=== PATIENT | female | born 1985 | race Hispanic/Latino ===

== ENCOUNTER 2019-11-07 10:30 | Emergency (ER) | payer OTHER ==
[~2019-11-07] VITALS: Ht 160 cm; Wt 86.2 kg
== END 2019-11-07 13:16 | disposition home or self-care (01) ==
LOC: ED 10:30
DX: N93.9 Abnormal uterine and vaginal bleeding, unspecified (principal)
CPT/HCPCS: 36415; 76801; 76817; 84702; 99284-25

== ENCOUNTER 2020-07-18 15:31 | Emergency (ER) | payer OTHER ==
[~2020-07-18] VITALS: Ht 167.6 cm; Wt 84.4 kg
[~2020-07-18 15:31] MED LIST: BIOTIN10000 MC1 PO; CALCIUM 600 +1 EAC2 PO; IRON325 M1 PO; MULTIVITAMINS1 EAC8 PO; PRENATAL + DHA1 EAC1 PO; VITAMIN D21250 MCG PO; WELLBUTRIN XL150 MG PO
[2020-07-18] MEDS ORDERED: PREDNISONE20 MG PO (17:55)
== END 2020-07-18 18:08 | disposition home or self-care (01) ==
LOC: ED 15:31
DX: M54.6 Pain in thoracic spine (principal); M54.5 Low back pain; F32.9 Major depressive disorder, single episode, unspecified; F41.9 Anxiety disorder, unspecified; Z91.040 Latex allergy status; Z79.899 Other long term (current) drug therapy
CPT/HCPCS: 81001; 84703; 99283

== ENCOUNTER 2021-04-27 07:53 | Emergency (ER) | payer OTHER ==
[~2021-04-27] VITALS: Ht 160 cm; Wt 96.6 kg
[~2021-04-27 07:53] MED LIST changes: +PREDNISONE20 MG PO
[2021-04-27] MEDS ORDERED: PRENATAL FORMU1 EAC2 PO (08:07)
[2021-04-27] MEDS ORDERED: IRON18 MG PO (08:07)
[2021-04-27] MEDS ORDERED: POTASSIUM CHLOR8 MEQ PO (08:07)
== END 2021-04-27 08:38 | disposition home or self-care (01) ==
LOC: ED 07:53
DX: O9A.213 Injury, poisoning and certain other consequences of external causes complicating pregnancy, third trimester (principal); S61.210A Laceration without foreign body of right index finger without damage to nail, initial encounter; Z88.1 Allergy status to other antibiotic agents; Z91.040 Latex allergy status; Z79.899 Other long term (current) drug therapy; W26.0XXA Contact with knife, initial encounter; Z3A.37 37 weeks gestation of pregnancy
CPT/HCPCS: 12001; 99282-25

== ENCOUNTER 2021-05-12 07:35 | Inpatient (IN) | payer OTHER ==
[~2021-05-12 07:35] MED LIST changes: +IRON18 MG PO; +POTASSIUM CHLOR8 MEQ PO; +PRENATAL FORMU1 EAC2 PO
--- NOTE | 2021-05-12 08:25 | NUR ---
RT COLLECTED RAPID COVID 19 SWAB USING IN HOUSE LAB WITH NO COMPLICATIONS AT THIS TIME.
--- NOTE | 2021-05-12 11:00 | PR ---
[facility] [address] [facility] [place], [place] [address] Signed Progress Notes IP Datetime Report Generated by CPN: 05/12/2021 11:00 PROGRESS NOTES: [id number] Impression: Normal Progression of Labor Procedures: Artificial ROM; Sterile Vag Exam Plan: Continue Present Management Informed Consent Obtain: Vaginal Delivery VITAL SIGNS: [id number] Vital Signs: Reviewed; Within Normal Limits EXAM: [id number] Dilatation: 9.5 Effacement: 100 Station: -1 Contractions: q 3-4 min per pt MEMBRANES: [id number] Comments: Pt seen and examined. Doing well. Comfortable w/ epidural. 9.5cm w/ easily reducible cervix. AROM performed for scant amniotic fluid. Anticipate soon. FETUS A: [id number] FHR Baseline: 140 Variability: Moderate 6-25bpm Accelerations: 15X15 Decelerations: None FHR Category: Category I Comments on Fetus A: No evidence of metabolic acidosis FETUS B: [id number] Signing Physician: Ponce Garcia DO Copies: ~ *Electronically Signed* 05/12/21 1100 PONCE GARCIA DO PATIENT NAME: JOHNY GERARDO PROGRESS NOTE DATE OF : 89 PHYSICIAN: PONCE GARCIA DO RPT #: [id number] REPORT IS CONFIDENTIAL AND NOT TO BE RELEASED WITHOUT AUTHORIZATION
--- NOTE | 2021-05-12 11:01 | PR ---
[facility] [address] [facility] [place], [place] [address] Signed Progress Notes IP Datetime Report Generated by CPN: 05/12/2021 11:01 PROGRESS NOTES: [id number] Impression: Normal Progression of Labor Procedures: Artificial ROM; Sterile Vag Exam Plan: Continue Present Management Informed Consent Obtain: Vaginal Delivery VITAL SIGNS: [id number] Vital Signs: Reviewed; Within Normal Limits EXAM: [id number] Dilatation: 9.5 Effacement: 100 Station: -1 Contractions: q 3-4 min per pt MEMBRANES: [id number] Comments: Pt seen and examined. Doing well. Comfortable w/ epidural. 9.5cm w/ easily reducible cervix. AROM performed for scant amniotic fluid. Anticipate soon. FETUS A: [id number] FHR Baseline: 140 Variability: Moderate 6-25bpm Accelerations: 15X15 Decelerations: None FHR Category: Category I Comments on Fetus A: No evidence of metabolic acidosis FETUS B: [id number] Signing Physician: Ponce Garcia DO Copies: ~ *Electronically Signed* 05/12/21 1101 PONCE GARCIA DO PATIENT NAME: JOHNY GERARDO PROGRESS NOTE DATE OF : 89 PHYSICIAN: PONCE GARCIA DO RPT #: [id number] REPORT IS CONFIDENTIAL AND NOT TO BE RELEASED WITHOUT AUTHORIZATION
--- NOTE | 2021-05-12 12:30 | PR ---
[facility] [address] [facility] [place], [place] [address] Signed Progress Notes IP Datetime Report Generated by CPN: 05/12/2021 12:30 PROGRESS NOTES: [id number] Impression: Normal Progression of Labor Procedures: Sterile Vag Exam Plan: Continue Present Management; Anticipate Vaginal Delivery Informed Consent Obtain: Vaginal Delivery VITAL SIGNS: [id number] Vital Signs: Reviewed; Within Normal Limits EXAM: [id number] Dilatation: 10.0 Effacement: 100 Station: 0 Contractions: q 3-4 min per pt MEMBRANES: [id number] Comments: Physician at bedside pushing w/ pt. Last glucose 90. Excellent pushing efforts and descent noted w/ each ctx. Anticipate soon. FETUS A: [id number] FHR Baseline: 140 Variability: Moderate 6-25bpm Accelerations: 15X15 Decelerations: None FHR Category: Category I Comments on Fetus A: No evidence of metabolic acidosis FETUS B: [id number] Signing Physician: Ponce Garcia DO Copies: ~ *Electronically Signed* 05/12/21 1230 PONCE GARCIA DO PATIENT NAME: JOHNY GERARDO PROGRESS NOTE DATE OF : 89 PHYSICIAN: PONCE GARCIA DO [facility] #: [id number] REPORT IS CONFIDENTIAL AND NOT TO BE RELEASED WITHOUT AUTHORIZATION
--- NOTE | 2021-05-13 12:37 | PR ---
[facility] [address] [facility] [place], [place] [address] Signed PP Progress Notes Datetime Report Generated by CPN: 05/13/2021 12:37 SUBJECTIVE: [id number] Pain: Within Normal Limits Nausea/Vomiting: Denies Flatus: Yes Vital Signs: [id number] Vital Signs: Reviewed; Within Normal Limits Cardiovascular: Normal Respiratory: Normal Abdomen/Uterus: Normal CVA Tenderness: Normal Extremities: Normal Incision: Not Applicable Progress: Normal Exam Comments: Fundus firm U-2 nontender IMPRESSION/PLAN/PROCEDURES: [id number] Impression: Normal Progression Plan: Discharge Progress Notes: Pt seen and examined. Doing well. Ambulating, voiding, and tolerating full diet. Pain and lochia minimal. well. No concerns. Desires d/c home today. Reviewd NSAID intolerance due to gastric bypass and will primarily use ice and tylenol for pain control, although Gilbert 5/325 #5 also rx'd. F/U w/ Dr Vargas for pp care Signing Physician: Ponce Garcia DO Copies: ~ *Electronically Signed* 05/13/21 1237 PONCE GARCIA DO PATIENT NAME: JOHNY GERARDO PROGRESS NOTE DATE OF : 89 PHYSICIAN: PONCE GARCIA DO RPT #: [id number] REPORT IS CONFIDENTIAL AND NOT TO BE RELEASED WITHOUT AUTHORIZATION
== END 2021-05-13 17:10 | disposition home or self-care (01) | DRG 807 ==
LOC: FBCO 07:35 → FBC 07:50 → FBCO 05-13 06:41 → FBC 05-13 17:10
PROVIDERS: ADMIT Obstetrics & Gynecology; ATTEND Obstetrics & Gynecology
PROC: 10E0XZZ Delivery of Products of Conception, External Approach (ICD-10-PCS; principal; 2021-05-12)
PROC: 10907ZC Drainage of Amniotic Fluid, Therapeutic from Products of Conception, Via Natural or Artificial Opening (ICD-10-PCS; 2021-05-12)
PROC: 0HQ9XZZ Repair Perineum Skin, External Approach (ICD-10-PCS; 2021-05-12)
PROC: 3E0R3BZ Introduction of Anesthetic Agent into Spinal Canal, Percutaneous Approach (ICD-10-PCS; 2021-05-12)
PROC: 00HU33Z Insertion of Infusion Device into Spinal Canal, Percutaneous Approach (ICD-10-PCS; 2021-05-12)
DX: O24.420 Gestational diabetes mellitus in childbirth, diet controlled (principal); Z37.0 Single live birth; O70.0 First degree perineal laceration during delivery; Z3A.39 39 weeks gestation of pregnancy; Z91.040 Latex allergy status; O99.214 Obesity complicating childbirth; E66.9 Obesity, unspecified; Z98.84 Bariatric surgery status
CPT/HCPCS: 01960; 85027; C9803; J2001; J2405; J2590; J2795; J7121; U0003

== ENCOUNTER 2022-09-08 09:26 | Emergency (ER) | payer OTHER ==
[~2022-09-08] VITALS: Ht 160 cm; Wt 96.2 kg
--- OUTSIDE RECORDS SUMMARY | 2022-09-08 09:28 | XMS ---
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 EAnna VISIT COUNT (12 MO.) 1 PATI [place] TOTAL 1 NOTE: Visits indicate total known visits. ED/UCC VISIT TRACKING (12 MO.) 09/08/2022 09:27 PATI [facility] [place] TYPE: Emergency COMPLAINT: - BACK PAIN/INJURY INPATIENT VISIT TRACKING (12 MO.) No inpatient visits to display in this time frame [email or web address]
[2022-09-08] MEDS ORDERED: CLONAZEPAM1 MG PO (09:40)
[2022-09-08] MEDS ORDERED: PREDNISONE20 MG PO (10:03)
== END 2022-09-08 10:20 | disposition home or self-care (01) ==
LOC: ED 09:26
DX: S39.012A Strain of muscle, fascia and tendon of lower back, initial encounter (principal); F32.9 Major depressive disorder, single episode, unspecified; F41.9 Anxiety disorder, unspecified; Z88.1 Allergy status to other antibiotic agents; Z91.040 Latex allergy status; Z79.899 Other long term (current) drug therapy; X58.XXXA Exposure to other specified factors, initial encounter
CPT/HCPCS: 99283

== ENCOUNTER 2024-04-24 19:27 | Emergency (ER) | payer OTHER ==
[~2024-04-24] VITALS: Ht 160 cm; Wt 80.5 kg
[~2024-04-24 19:27] MED LIST changes: +CLONAZEPAM1 MG PO
--- OUTSIDE RECORDS SUMMARY | 2024-04-24 19:29 | XMS ---
PreManage Notification: JOHNY GERARDO Security Engineering Secretary Events No recent Security Events currently on file CRITERIA MET - PDM CARE PROVIDERS -, [facility] Dentist: Client Development Consultant [facility] PHONE: [phone] -[place] Dentist: Client Development Consultant Current [facility] PHONE: [phone] Yusuf has no Care Guidelines for this patient. Ankush VISIT COUNT (12 MO.) 2 PATI [place] TOTAL 2 NOTE: Visits indicate total known visits. ED/UCC VISIT TRACKING (12 MO.) 04/24/2024 19:28 [facility] [place] TYPE: Emergency COMPLAINT: - LT ANKLE PAIN 11/03/2023 17:17 [facility] [place] TYPE: Emergency COMPLAINT: - RT ANKLE INJURY DIAGNOSES: - Allergy status to other antibiotic agents - Latex allergy status - Other intermediate manager (current) drug therapy - Overexertion from prolonged static or awkward postures, initial encounter - Pain in right ankle and joints of right foot - Sprain of unspecified ligament of right ankle, initial encounter INPATIENT VISIT TRACKING (12 MO.) No inpatient visits to display in this time frame [email or web address]
[2024-04-24] MEDS ORDERED: NORGESTIMATE-E1 EACH PO (20:29)
[2024-04-24] MEDS ORDERED: TRAMADOL HCL 50 MG TAB PO ONE (20:45)
[2024-04-24] MEDS ORDERED: TRAMADOL HCL50 MG PO (22:19)
[2024-04-24] MEDS ORDERED: TRAMADOL HCL 50 MG HOME.PACK PO ONE (22:30)
[2024-04-24 22:40] VITALS: BP 114/77
== END 2024-04-24 22:39 | disposition home or self-care (01) ==
LOC: ED 19:27
DX: S90.32XA Contusion of left foot, initial encounter (principal); S90.02XA Contusion of left ankle, initial encounter; S80.12XA Contusion of left lower leg, initial encounter; S93.402A Sprain of unspecified ligament of left ankle, initial encounter; W18.30XA Fall on same level, unspecified, initial encounter; Z88.8 Allergy status to other drugs, medicaments and biological substances; Z91.040 Latex allergy status; Z79.899 Other long term (current) drug therapy
CPT/HCPCS: 73610; 73700; 99284-25; A9270

== ENCOUNTER 2024-07-15 17:41 | Observation (INO) | payer OTHER ==
[~2024-07-15] VITALS: Ht 160 cm; Wt 82.5 kg
[~2024-07-15 17:41] MED LIST changes: +NORGESTIMATE-E1 EACH PO; +TRAMADOL HCL50 MG PO
[2024-07-15 20:20] LABS: BASOPHILS 0.2 % (0-2); EOSINOPHILS 0.9 % (0-6); HEMATOCRIT 34.7 % (35.0-50.0); HEMOGLOBIN 11.9 g/dL (12.0-18.0); LYMPHOCYTES 17.2 % (24-44); MCH 31.3 (27-36); MCHC 34.4 g/dl (30-36); MCV 90.9 fl (81-99); MONOCYTES 7.2 % (0-12); NEUTROPHILS 74.5 % (39-80); PLATELET COUNT 253 K/uL (140-440); RBC 3.82 M/ul (4.3-5.7); RDW 15.2 (10.5-15.0)
[2024-07-15 20:35] LABS: ALBUMIN 3.4 g/dL (3.4-5.0); ALBUMIN/GLOBULIN RATIO 0.76 (1.1-2.4); BILIRUBIN, TOTAL 0.3 ng/dL (0.2-1.0); BUN/CREATININE RATIO 12.28 (6.0-28.6); CALCIUM 8.9 mg/dL (8.5-10.1); CREATININE, SERUM 0.57 mg/dL (0.55-1.02); PROTEIN, TOTAL 7.9 g/dL (6.4-8.2)
[2024-07-15] MEDS ORDERED: KETOROLAC TROMETHAMINE 30 MG/ML VIAL IV ONE (21:15)
[2024-07-15] MEDS ORDERED: TRIMETHOPRIM/SULFAMETHOXAZOLE 1 EA TAB PO ONE (21:30)
[2024-07-15] MEDS ORDERED: CEFAZOLIN SODIUM 2 GM/20 ML SYR IV ONE (21:45)
[2024-07-15] MEDS ORDERED: metroNIDAZOLE/SODIUM CHLORIDE 500 MG/100 ML PIGGYBACK IV ONE (21:45)
[2024-07-15 22:14] LABS: LACTIC ACID, BLOOD 0.6 mmol/L (0.4-2.0)
[2024-07-15] MEDS ORDERED: LACTATED RINGER'S 1,000 ML IV SCH ×2 (22:15→22:30)
[2024-07-15] MEDS ORDERED: BUPIVACAINE 0.75% IN DEXTROSE 2 ML AMP ONE (22:32)
[2024-07-15] MEDS ORDERED: MIDAZOLAM HCL 2 MG/2 ML VIAL ONE (22:32)
[2024-07-15] MEDS ORDERED: FAMOTIDINE 20 MG/ 2 ML VIAL IV SCH (22:32)
[2024-07-15] MEDS ORDERED: fentaNYL citrate 100 MCG/2 ML VIAL ONE (22:32)
[2024-07-15] MEDS ORDERED: LIDOCAINE HCL 2% 5 ML SDV ONE (22:32)
[2024-07-15] MEDS ORDERED: ondansetron HCL 4 MG/2 ML VIAL ONE (22:32)
[2024-07-15] MEDS ORDERED: propofoL 200 MG/20 ML VIAL ONE ×2 (23:10)
[2024-07-15 23:19] LABS: BILIRUBIN, URINE NEGATIVE (negative); BLOOD/HGB, URINE NEGATIVE (Negative); KETONE, URINE NEGATIVE (Negative); LEUK ESTERASE, URINE NEGATIVE (negative); NITRITE, URINE NEGATIVE (negative); PH, URINE 7.5 (5-7)
[2024-07-15 23:33] LABS: AMPHETAMINES, URINE NEGATIVE (NEGATIVE); BARBITURATES, URINE NEGATIVE (NEGATIVE); BENZODIAZEPINE, URINE NEGATIVE (NEGATIVE); BUPRENORPHINE, URINE NEGATIVE (NEGATIVE); CANNABINOID, URINE POSITIVE (NEGATIVE); COCAINE, URINE NEGATIVE (NEGATIVE); ECSTASY, URINE NEGATIVE (NEGATIVE); FENTANYL, URINE NEGATIVE (NEGATIVE); METHADONE, URINE NEGATIVE (NEGATIVE); OPIATES, URINE NEGATIVE (NEGATIVE); OXYCODONE, URINE NEGATIVE (NEGATIVE); PHENCYCLIDINE, URINE NEGATIVE (NEGATIVE)
[2024-07-15] MEDS ORDERED: HYDROmorphone HCL 1 MG/ML SYR IV PRN (23:45)
[2024-07-15] MEDS ORDERED: NALOXONE HCL 0.4 MG SYR IV PRN (23:45)
[2024-07-15] MEDS ORDERED: KETOROLAC TROMETHAMINE 30 MG/ML VIAL IV PRN (23:45)
[2024-07-15] MEDS ORDERED: ondansetron HCL 4 MG/2 ML VIAL IV PRN (23:45)
[2024-07-15] MEDS ORDERED: PROCHLORPERAZINE EDISYLATE 10 MG/2 ML VIAL IV PRN (23:45)
[2024-07-15] MEDS ORDERED: diphenhydrAMINE HCL 50 MG/ML VIAL IV PRN (23:45)
[2024-07-16] VITALS (8 sets, daily range): BP systolic 92–108; BP diastolic 54–79
[2024-07-16] MEDS ORDERED: KETOROLAC TROMETHAMINE 30 MG/ML VIAL IV PRN (02:15)
[2024-07-16] MEDS ORDERED: ACETAMINOPHEN 500 MG TAB PO PRN (02:15)
[2024-07-16] MEDS ORDERED: MORPHINE SULFATE 10 MG/ML VIAL IV PRN (02:15)
[2024-07-16] MEDS ORDERED: IBUPROFEN 600 MG TAB PO PRN (02:15)
[2024-07-16] MEDS ORDERED: OXYCODONE/APAP 7.5/325 TAB PO PRN (02:15)
[2024-07-16] MEDS ORDERED: CEFAZOLIN SODIUM 2 GM/20 ML SYR IV SCH ×2 (04:00→06:00)
[2024-07-16] MEDS ORDERED: metroNIDAZOLE/SODIUM CHLORIDE 500 MG/100 ML PIGGYBACK IV SCH ×2 (04:00→06:00)
[2024-07-16] MEDS ORDERED: IBUPROFEN600 MG PO (09:19)
[2024-07-16] MEDS ORDERED: OXYCODON-ACETA1 EAC2 PO (09:19)
[2024-07-16] MEDS ORDERED: ACETAMINOPHEN500 MG PO (09:19)
[2024-07-16] MEDS ORDERED: AMOXICILLIN/CLAVULANATE K 500 MG TAB PO SCH (09:25)
[2024-07-16] MEDS ORDERED: AUGMENTIN 500-1 EACH PO (09:26)
--- NOTE | 2024-07-19 11:13 | OR ---
[facility] [address] [place], [place] [address] Signed DATE OF OPERATION: 07/15/2024 SURGEON: Neetu Lopez MD PREOPERATIVE DIAGNOSIS: Right gluteal abscess x2. POSTOPERATIVE DIAGNOSIS: Right gluteal abscess x2. PROCEDURES: 1. Exam under anesthesia. 2. Incision drainage and debridement including soft tissue (subcutaneous fat) and skin of gluteal abscess x2. 3. Placement of yellow vessel loop drain. ANESTHESIA: Saddle block with IV sedation, Roberto Keene CRNA. INDICATION: This 38-year-old woman who has had four days of increasing pain in the right gluteal area in the superomedial and superolateral aspect. She presented to the emergency room having had some evidence of spontaneous necessitation of purulent material. She was evaluated by Dr. Raines, noted to have exquisite tenderness in two separate areas in the right superior gluteal area. This did not appear to be consistent with a perirectal abscess proper. She has never had skin infection or other similar problem in the past. A CT scan was performed, which showed inflammation and edema, but no drainable fluid collection. Nevertheless, clinical examination confirms two obvious abscesses in the right superior medial and lateral gluteal areas for which incision and drainage and debridement is appropriate. The risk of bleeding, infection, cosmetic deformity, need for additional treatment and so forth were reviewed with the patient. She understands and wished to proceed. FINDINGS: Indeed both areas were abscess cavities. Some of the purulence had drained of course, but there was necrotic fat in both of them. Elliptical excision of the skin and subcutaneous tissue in both areas was undertaken as well as debridement of necrotic fat. As it turns out the both areas were in continuity with each other in the subcutaneous space and a single yellow vessel loop was used to connect both areas to allow for ongoing drainage. Electronically Signed By: NEETU LOPEZ MD 07/19/24 1113 PATIENT NAME: JOHNY GERARDO OPERATIVE REPORT DATE OF : 89 REPORT #: [id number] PHYSICIAN: NEETU LOPEZ MD PCP: MITALI YEPEZ MD REPORT IS CONFIDENTIAL AND NOT TO BE RELEASED WITHOUT AUTHORIZATION [facility] [address] [place], [place] [address] Signed DESCRIPTION OF PROCEDURE: The patient was brought to the operating room after undergoing saddle block anesthetic and placed in the prone eugenia-knife position. The buttocks were prepared with chlorhexidine solution and draped sterilely. Incision with a 15 blade in the medial superior necessitating site was undertaken excising skin and subcutaneous tissue. Egress of purulent material was noted. Loculations were broken down with a tonsil clamp. Gram stain and cultures were obtained. Further probing showed the lesion to be in continuity with the superolateral lesion. This area was similarly excised and debrided and the two areas made in continuity with a tonsil clamp. A yellow vessel loop was passed between the two areas. Thereafter, debridement with suction and irrigation with sterile saline was undertaken until viable tissue was noted. Both sites were packed with a quarter-inch Nu Gauze for hemostatic benefit. Loop was tied and an ABD pad applied. The patient was returned to the supine position, ultimately taken to recovery room in good condition having suffered no complication. Blood loss was about 10 mL. Sponge, needle, and instrument counts reported as correct x3. Neetu Lopez MD JM/MODL /[id number] cc: Dr. Yanna Yepez Copies: ~ Electronically Signed By: NEETU LOPEZ MD 07/19/24 1113 PATIENT NAME: JOHNY GERARDO OPERATIVE REPORT DATE OF : 89 REPORT #: [id number] PHYSICIAN: NEETU LOPEZ MD PCP: MITALI YEPEZ MD REPORT IS CONFIDENTIAL AND NOT TO BE RELEASED WITHOUT AUTHORIZATION
--- NOTE | 2024-07-19 11:13 | HP ---
[facility] [address] [place], [place] [address] Signed ADMISSION DATE: 07/15/2024 REASON FOR ADMISSION: Large buttock abscess x2. 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 In the past several days, she has had increasing pain in two separate areas of the buttocks. This does not represent anal pain per se. She thought she had "spider bites." She has had progressive worsening of her symptoms, pain and swelling and intense tenderness upon manipulation. She was evaluated by Dr. Raines in the emergency room where she was found to have spontaneous necessitation of some purulent material. A CT scan was performed, which showed a "dominant focal cellulitis" superficial in the right upper gluteal cleft and additional small focus of cellulitis in the superolateral right paramedian lower back gluteal cleft. There was considered to be no organized fluid collection. Mindful of the notorious inaccuracy of such studies in this region, clinical examination was deemed appropriate and consultation undertaken at basis. PAST MEDICAL HISTORY: Rather unremarkable. LABORATORY DATA: Her lab studies in evaluation included a beta HCG, which is negative. A Chem profile is entirely normal. REVIEW OF SYSTEMS: She denies any fever, chills. She has intense pain in the gluteal areas as described. PHYSICAL EXAMINATION: GENERAL: Pleasant, woman who was alert and oriented, not systemically toxic. HEENT: Trachea is midline. LUNGS: She has no respiratory distress. HEART: Regular. PELVIS: In the lateral decubitus position with the nurse in attendance as well as Dr. Raines, examination of the gluteal area was undertaken. Two areas of intense inflammation and a large abscess cavities are noted with some spontaneous necessitation. This does not appear to be a perianal problem but rather gluteal abscess problem. Electronically Signed By: NEETU LOPEZ MD 07/19/24 1113 PATIENT NAME: JOHNY GERARDO HISTORY AND PHYSICAL DATE OF : 89 REPORT #: [id number] PHYSICIAN: NEETU LOPEZ MD PCP: MITALI YEPEZ MD REPORT IS CONFIDENTIAL AND NOT TO BE RELEASED WITHOUT AUTHORIZATION [facility] [address] [place], [place] [address] Signed ASSESSMENT AND PLAN: The patient has gluteal abscesses x2, which have started with spontaneous necessitation. Antibiotics have been initiated including Ancef and Flagyl. She needs exam under anesthesia and incision, drainage and debridement of the abscess cavities. Likely, she will need a vessel loop type drainage apparatus on each site. The risk of bleeding, infection, cosmetic deformity, possibility of recurrent or more advanced disease and expected were all reviewed with her. She understands and wished to proceed. We will plan to do this tonight despite the late hour given the acuity of her problem. MD JORY Jones/CHERRI /[id number] cc: Dr. Yanna Yepez Copies: ~ Electronically Signed By: NEETU LOPEZ MD 07/19/24 1113 PATIENT NAME: JOHNY GERARDO HISTORY AND PHYSICAL DATE OF : 89 REPORT #: [id number] PHYSICIAN: NEETU LOPEZ MD PCP: MITALI YEPEZ MD REPORT IS CONFIDENTIAL AND NOT TO BE RELEASED WITHOUT AUTHORIZATION
--- NOTE | 2024-07-21 18:19 | PATH ---
[facility] [address] [place], [place] [address] Signed SPECIMEN(S): A GLUTEAL ABSCESSES SPECIMEN SOURCE: A. GLUTEAL ABSCESSES CLINICAL HISTORY: Gluteal abscesses x 2 FINAL PATHOLOGIC DIAGNOSIS: Gluteal abscesses: - Inflamed and ulcerated skin with prominent acute subepithelial inflammation and abscess. JVR:slc MICROSCOPIC EXAMINATION: Histologic sections of all submitted blocks are examined by light microscopy. These findings, together with the gross examination, support the pathologic diagnosis. GROSS DESCRIPTION: The specimen, labeled and designated "Jayant Tabares, products of debridement," is received in formalin and consists of single fragment of pereyra-contreras soft tissue with overlying contreras skin measuring 1.3 x 1.2 x 0.9 cm. The specimen trisected to reveal yellow-contreras discolored soft tissue seen throughout. The specimen entirely submitted in a single cassette. JM (under the direct supervision of a pathologist) The Gross Description was prepared using a voice recognition system. The report was reviewed for accuracy; however, sound-alike word errors, addition and/or deletions may occur. If there is any question about this report, please contact Client Services. PERFORMING LABORATORY: Technical component was performed by [email or web address], [address] [place] [id number] (CLIA# [id number]). Professional interpretation was performed by [facility] - [facility], [address] [place] [id number] (CLIA#: [id number]). Diagnostician: Arden Duran MD Pathologist Electronically Signed 07/21/2024 PATIENT NAME: JOHNY TABARES PATHOLOGY DATE OF : 89 REPORT #: [id number] PHYSICIAN: JANET FRANKEL PCP: MITALI YEPEZ MD REPORT IS CONFIDENTIAL AND NOT TO BE RELEASED WITHOUT AUTHORIZATION [address] [place], [place] [address] Signed Copies: ~ PATIENT NAME: JOHNY TABARES PATHOLOGY DATE OF : [birth year] REPORT #: [id number] PHYSICIAN: JANET PATHOLOGY PCP: MITALI YEPEZ MD REPORT IS CONFIDENTIAL AND NOT TO BE RELEASED WITHOUT AUTHORIZATION
== END 2024-07-16 11:52 | disposition home or self-care (01) ==
LOC: ED 17:41 → CCU 17:42
PROVIDERS: Internal Medicine; ADMIT Surgery; ATTEND Surgery
PROC: 0J9900Z Drainage of Buttock Subcutaneous Tissue and Fascia with Drainage Device, Open Approach (ICD-10-PCS; principal; 2024-07-16)
DX: L02.31 Cutaneous abscess of buttock (principal); L98.412 Non-pressure chronic ulcer of buttock with fat layer exposed
CPT/HCPCS: 00400; 36415; 74177; 80053; 80307; 81003; 83605; 84703; 85025; 87040; 87070; 87075; 87186; 87205; 96375; 99284-25; J0690; J1885; J2250; J2405; J2704; J3010; J7121; Q9967

== ENCOUNTER 2024-10-01 17:35 | Emergency (ER) | payer OTHER ==
[~2024-10-01] VITALS: Ht 160 cm; Wt 79.4 kg
[~2024-10-01 17:35] MED LIST changes: +ACETAMINOPHEN500 MG PO; +AUGMENTIN 500-1 EACH PO; +IBUPROFEN600 MG PO; +OXYCODON-ACETA1 EAC2 PO
[2024-10-01] MEDS ORDERED: OXYCODONE/APAP 5/325 TAB PO ONE (20:00)
[2024-10-01] MEDS ORDERED: HIBICLENS118 ML TOP (20:57)
[2024-10-01] MEDS ORDERED: DOXYCYCLINE HYCLATE 100 MG HOME.PACK PO ONE (21:00)
[2024-10-01 21:15] VITALS: BP 117/74
== END 2024-10-01 21:16 | disposition home or self-care (01) ==
LOC: ED 17:35
DX: L02.415 Cutaneous abscess of right lower limb (principal); Z91.040 Latex allergy status; Z88.1 Allergy status to other antibiotic agents; Z79.899 Other long term (current) drug therapy
CPT/HCPCS: 99282; A9270

== ENCOUNTER 2024-11-22 18:59 | Emergency (ER) | payer OTHER ==
[~2024-11-22] VITALS: Ht 160 cm; Wt 74.2 kg
[~2024-11-22 18:59] MED LIST changes: +HIBICLENS118 ML TOP
[2024-11-22] MEDS ORDERED: KETOROLAC TROMETHAMINE 30 MG/ML VIAL IV ONE (19:30)
[2024-11-22 19:54] LABS: BASOPHILS 0.3 % (0-2); EOSINOPHILS 0.3 % (0-6); HEMATOCRIT 34.1 % (35.0-50.0); HEMOGLOBIN 11.7 g/dL (12.0-18.0); LYMPHOCYTES 12.4 % (24-44); MCH 29.5 (27-36); MCHC 34.2 g/dl (30-36); MCV 86.2 fl (81-99); MONOCYTES 6.7 % (0-12); NEUTROPHILS 80.3 % (39-80); PLATELET COUNT 277 K/uL (140-440); RBC 3.95 M/ul (4.3-5.7); RDW 16.9 (10.5-15.0)
[2024-11-22 20:22] LABS: ALBUMIN 3.9 g/dL (3.4-5.0); ALBUMIN/GLOBULIN RATIO 1.08 (1.1-2.4); ANION GAP 13.4 (7-21); BILIRUBIN, TOTAL 0.3 mg/dL (0.2-1.0); CALCIUM 8.8 mg/dL (8.5-10.1); CREATININE, SERUM 0.65 mg/dL (0.55-1.02); POTASSIUM 3.4 mmol/L (3.5-5.1); PROTEIN, TOTAL 7.5 g/dL (6.4-8.2)
[2024-11-22] MEDS ORDERED: CYCLOBENZAPRINE10 MG PO (21:48)
[2024-11-22] MEDS ORDERED: AMOX TR-K CLV1 EAC1 PO (21:54)
[2024-11-22 22:00] VITALS: BP 118/84
[2024-11-22] MEDS ORDERED: CYCLOBENZAPRINE HCL 10 MG HOME.PACK PO ONE (22:00)
[2024-11-22] MEDS ORDERED: AMOXICILLIN/CLAVULANATE K 875 MG HOME.PACK PO ONE (22:00)
== END 2024-11-22 22:00 | disposition home or self-care (01) ==
LOC: ED 18:59
PROVIDERS: Family Medicine
DX: S00.03XA Contusion of scalp, initial encounter (principal); S00.83XA Contusion of other part of head, initial encounter; S40.012A Contusion of left shoulder, initial encounter; S01.531A Puncture wound without foreign body of lip, initial encounter; T71.193A Asphyxiation due to mechanical threat to breathing due to other causes, assault, initial encounter; Z88.1 Allergy status to other antibiotic agents; Z91.040 Latex allergy status; Z79.899 Other long term (current) drug therapy; Y04.2XXA Assault by strike against or bumped into by another person, initial encounter
CPT/HCPCS: 36415; 70450; 70486; 70498; 72125; 80053; 84703; 85025; 96374; 99284-25; J1885; Q9967

== ENCOUNTER 2024-12-09 19:30 | Emergency (ER) | payer OTHER ==
[~2024-12-09] VITALS: Ht 160 cm; Wt 70.8 kg
[~2024-12-09 19:30] MED LIST changes: +AMOX TR-K CLV1 EAC1 PO; +CYCLOBENZAPRINE10 MG PO
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
[2024-12-09 20:41] LABS: CORONAVIRUS COVID-19 AG NEGATIVE (NEGATIVE); INFLUENZA A AG NEGATIVE (NEGATIVE); INFLUENZA B AG NEGATIVE (NEGATIVE)
[2024-12-09] MEDS ORDERED: FLONASE ALLERG9.9 ML NAS (22:55)
[2024-12-09 23:11] VITALS: BP 117/76
== END 2024-12-09 23:11 | disposition home or self-care (01) ==
LOC: ED 19:30
PROVIDERS: Internal Medicine
DX: H69.92 Unspecified Eustachian tube disorder, left ear (principal); B34.9 Viral infection, unspecified; Z88.1 Allergy status to other antibiotic agents; Z91.040 Latex allergy status
CPT/HCPCS: 36415; 99283

== ENCOUNTER 2025-05-19 18:08 | Emergency (ER) | payer OTHER ==
[~2025-05-19] VITALS: Ht 160 cm; Wt 64.4 kg
[~2025-05-19 18:08] MED LIST changes: +FLONASE ALLERG9.9 ML NAS
[2025-05-19] MEDS ORDERED: BUPROPION XL150 MG (18:32)
[2025-05-19] MEDS ORDERED: VITAFOL-OB+DHA1 EACH PO (18:33)
[2025-05-19] MEDS ORDERED: CEPHALEXIN MONOHYDRATE 500 MG CAP PO ONE (19:00)
[2025-05-19 19:18] VITALS: BP 112/73
[2025-05-19] MEDS ORDERED: CEPHALEXIN500 M1 PO (19:19)
== END 2025-05-19 19:26 | disposition home or self-care (01) ==
LOC: ED 18:08
DX: O99.711 Diseases of the skin and subcutaneous tissue complicating pregnancy, first trimester (principal); L02.31 Cutaneous abscess of buttock; Z3A.01 Less than 8 weeks gestation of pregnancy; Z88.1 Allergy status to other antibiotic agents; Z91.040 Latex allergy status; Z79.899 Other long term (current) drug therapy
CPT/HCPCS: 10060; 99282-25; A9270

== ENCOUNTER 2025-05-24 08:35 | Emergency (ER) | payer OTHER ==
[~2025-05-24] VITALS: Ht 160 cm; Wt 63.5 kg
[~2025-05-24 08:35] MED LIST changes: +BUPROPION XL150 MG; +CEPHALEXIN500 M1 PO; +VITAFOL-OB+DHA1 EACH PO
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
[2025-05-24 10:33] VITALS: BP 104/77
== END 2025-05-24 10:33 | disposition home or self-care (01) ==
LOC: ED 08:35
DX: O20.0 Threatened abortion (principal); Z3A.01 Less than 8 weeks gestation of pregnancy; Z98.84 Bariatric surgery status; Z88.1 Allergy status to other antibiotic agents; Z91.040 Latex allergy status; Z79.899 Other long term (current) drug therapy
CPT/HCPCS: 76801; 76817; 99284-25